=== PATIENT | female | born 1945 | race Caucasian/White ===

== ENCOUNTER → 2016-07-16 | Outpatient (CLI) | payer MEDICARE ==
[~2016-07-16] MED LIST: ANAS1TAB PO; BIOT5TAB PO; CALC-112 PO; GLUC1TAB21 PO; MULT-115 PO; MULT-26; OMNIPAQUE 350 MG/ML, 100ML BOTTLE ONE; TAMO10TA
== END | disposition home or self-care (01) ==
LOC: CFH 08:24
PROVIDERS: ATTEND Internal Medicine Hematology & Oncology
DX: C50.912 Malignant neoplasm of unspecified site of left female breast (principal); C79.51 Secondary malignant neoplasm of bone; N94.89 Other specified conditions associated with female genital organs and menstrual cycle; N13.30 Unspecified hydronephrosis; M89.9 Disorder of bone, unspecified
CPT/HCPCS: 71260; 74177; Q9967

== ENCOUNTER → 2016-10-16 | Outpatient (CLI) | payer MEDICARE | END | disposition home or self-care (01) | LOC: CFH 08:35 | PROVIDERS: ATTEND Internal Medicine Hematology & Oncology | DX: C79.51 Secondary malignant neoplasm of bone (principal); C50.912 Malignant neoplasm of unspecified site of left female breast; D17.5 Benign lipomatous neoplasm of intra-abdominal organs; K76.0 Fatty (change of) liver, not elsewhere classified; J98.4 Other disorders of lung; N28.1 Cyst of kidney, acquired; K57.30 Diverticulosis of large intestine without perforation or abscess without bleeding; I70.0 Atherosclerosis of aorta | CPT/HCPCS: 71260; 74177; Q9967 ==

== ENCOUNTER → 2017-03-13 | Outpatient (CLI) | payer MEDICARE ==
[~2017-03-13] MED LIST changes: -OMNIPAQUE 350 MG/ML, 100ML BOTTLE ONE
== END | disposition home or self-care (01) ==
LOC: PETCFH 11:33
PROVIDERS: ATTEND Internal Medicine Hematology & Oncology
DX: C79.51 Secondary malignant neoplasm of bone (principal); C50.912 Malignant neoplasm of unspecified site of left female breast
CPT/HCPCS: 78306; A9503

== ENCOUNTER → 2017-03-13 | Outpatient (CLI) | payer MEDICARE ==
[~2017-03-13] MED LIST changes: +OMNIPAQUE 350 MG/ML, 100ML BOTTLE ONE
== END | disposition home or self-care (01) ==
LOC: CFH 11:38
PROVIDERS: ATTEND Internal Medicine Hematology & Oncology
DX: C79.51 Secondary malignant neoplasm of bone (principal); C50.919 Malignant neoplasm of unspecified site of unspecified female breast
CPT/HCPCS: 71260; 74177; Q9967

== ENCOUNTER → 2020-01-05 | Outpatient (CLI) | payer MEDICARE ==
[~2020-01-05] MED LIST changes: +MAGN400T36 PO; -TAMO10TA; +TAMO10TA6
== END | disposition home or self-care (01) ==
LOC: RAD 13:35
PROVIDERS: ATTEND Family Medicine
DX: C79.51 Secondary malignant neoplasm of bone (principal); K40.20 Bilateral inguinal hernia, without obstruction or gangrene, not specified as recurrent; N13.30 Unspecified hydronephrosis; Z90.710 Acquired absence of both cervix and uterus; Z85.3 Personal history of malignant neoplasm of breast
CPT/HCPCS: 74177; Q9967

== ENCOUNTER 2020-01-17 09:57 | Day surgery (SDC) | payer MEDICARE ==
[~2020-01-17] VITALS: Ht 162.6 cm; Wt 53.9 kg
[~2020-01-17 09:57] MED LIST changes: +HYDR-3240 PO; -OMNIPAQUE 350 MG/ML, 100ML BOTTLE ONE; +POLY17PO5 PO
[2020-01-17 10:27] VITALS: BP 138/85
[2020-01-17] MEDS ORDERED: SODIUM CHLORIDE 0.9% 1,000 ML IV SCH (10:30)
[2020-01-17] MEDS ORDERED: FLUMAZENIL 0.1 MG/1 ML, 5ML ONE (12:26)
[2020-01-17] MEDS ORDERED: NALOXONE 1 MG/ML, 2ML ONE (12:26)
[2020-01-17] MEDS ORDERED: FENTANYL PF 100 MCG/2ML ONE (12:26)
[2020-01-17] MEDS ORDERED: MIDAZOLAM 1 MG/ML, 5ML ONE (12:26)
== END 2020-01-17 14:30 | disposition home or self-care (01) ==
LOC: OUT 09:57
PROVIDERS: ATTEND Internal Medicine Hematology & Oncology
DX: R19.09 Other intra-abdominal and pelvic swelling, mass and lump (principal); Z85.3 Personal history of malignant neoplasm of breast; Z85.830 Personal history of malignant neoplasm of bone; Z79.899 Other long term (current) drug therapy
CPT/HCPCS: 49180; 77012; 88305; 99156; J2250; J3010; J2310

== ENCOUNTER → 2020-01-19 | Outpatient (CLI) | payer MEDICARE | END | disposition home or self-care (01) | LOC: PETCFH 12:23 | PROVIDERS: ATTEND Internal Medicine Hematology & Oncology | DX: C79.51 Secondary malignant neoplasm of bone (principal); C50.912 Malignant neoplasm of unspecified site of left female breast; N13.30 Unspecified hydronephrosis | CPT/HCPCS: 78815; A9552 ==

== ENCOUNTER 2020-01-27 05:57 | Day surgery (SDC) | payer MEDICARE ==
[~2020-01-27] VITALS: Ht 152.4 cm; Wt 55.0 kg
[2020-01-27 06:56] VITALS: BP 147/83
[2020-01-27] MEDS ORDERED: LIDOCAINE 1%, 10ML ONE (08:05)
[2020-01-27] MEDS ORDERED: FENTANYL PF 100 MCG/2ML ONE (08:21)
[2020-01-27] MEDS ORDERED: MIDAZOLAM 1 MG/ML, 5ML ONE (08:21)
[2020-01-27] MEDS ORDERED: NALOXONE 1 MG/ML, 2ML ONE (08:21)
[2020-01-27] MEDS ORDERED: FLUMAZENIL 0.1 MG/1 ML, 5ML ONE (08:21)
== END 2020-01-27 10:30 | disposition home or self-care (01) ==
LOC: OUT 05:57
PROVIDERS: ATTEND Internal Medicine Hematology & Oncology
DX: C79.51 Secondary malignant neoplasm of bone (principal); C50.912 Malignant neoplasm of unspecified site of left female breast; C78.6 Secondary malignant neoplasm of retroperitoneum and peritoneum; Z17.0 Estrogen receptor positive status [ER+]; Z79.891 Long term (current) use of opiate analgesic; Z90.12 Acquired absence of left breast and nipple; Z92.3 Personal history of irradiation
CPT/HCPCS: 20225; 77012; 88307; 88311; 88342; 99156; 99157; J2250; J3010; J2310